=== PATIENT | female | born 1980 | race Hispanic/Latino ===

== ENCOUNTER 2022-10-27 12:09 | Emergency (ER) | payer SELFPAY ==
[~2022-10-27] VITALS: Ht 162.6 cm; Wt 113.4 kg
[2022-10-27] MEDS ORDERED: PROMETHAZINE HC25 M1 PO (12:25)
[2022-10-27] MEDS ORDERED: IBUPROFEN600 MG PO (12:25)
[2022-10-27] MEDS ORDERED: METHOCARBAMOL750 MG PO (12:25)
[2022-10-27] MEDS ORDERED: ACETAMIN/BUTALBITAL/CAFFEINE TAB PO ONE (12:30)
[2022-10-27] MEDS ORDERED: ONDANSETRON HCL 4 MG ORAL DISINTEGRATING TAB PO ONE (12:30)
[2022-10-27] MEDS ORDERED: DIAZEPAM 2 MG TAB PO ONE (12:30)
== END 2022-10-27 12:38 | disposition home or self-care (01) ==
LOC: ER 12:17
DX: G44.209 Tension-type headache, unspecified, not intractable (principal); I10 Essential (primary) hypertension
CPT/HCPCS: 99282; Q0162